=== PATIENT | male | born 1990 | race African-American/Black ===

== ENCOUNTER 2018-09-16 16:02 | Emergency (ER) | payer MEDICARE, OTHER ==
[~2018-09-16] VITALS: Ht 175.3 cm; Wt 102.1 kg
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
[2018-09-16 16:11] VITALS: BP 126/88
[2018-09-16 16:15] VITALS: BP 126/88
[2018-09-16] MEDS ORDERED: CLARITIN5 MG ORAL (16:15)
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
== END 2018-09-16 16:30 | disposition left against medical advice (07) ==
LOC: EMR 16:26
DX: M79.641 Pain in right hand (principal); I10 Essential (primary) hypertension
CPT/HCPCS: 99283

== ENCOUNTER 2018-11-28 23:15 | Emergency (ER) | payer MEDICARE, OTHER ==
[~2018-11-28] VITALS: Ht 175.3 cm; Wt 106.6 kg
[~2018-11-28 23:15] MED LIST: CLARITIN5 MG ORAL
[2018-11-28] MEDS ORDERED: FUROSEMIDE20 M1 ORAL (23:25)
[2018-11-28 23:32] VITALS: BP 196/119
--- NOTE | 2018-11-28 23:32 | NUR ---
ED Nurse Note: Patient walked into ED c/o lacerations on his right hand, patient states that he slipped and a forklift ran over his hand. BP of 196/119 however states that he did not take his meds today
[2018-11-29] MEDS ORDERED: Bacitracin Oint UD TOPIC ONE (00:15)
[2018-11-29 00:17] VITALS: BP 167/106
[2018-11-29] MEDS ORDERED: IBUPROFEN600 MG ORAL (00:20)
[2018-11-29] MEDS ORDERED: CEPHALEXIN500 MG ORAL (00:20)
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
[2018-11-29 00:25] VITALS: BP 167/106
--- NOTE | 2018-11-29 00:25 | NUR ---
ER DISCHARGE NOTE: Patient is cleared to be discharged per ERMD, pt is aox4, on room air, with stable vital signs. pt was given dc and prescription instructions, pt was able to verbalize understanding, pt id band removed pt is able to ambulate with steady gait. pt took all belongings.
== END 2018-11-29 00:24 | disposition home or self-care (01) ==
LOC: EMR 23:39
DX: S61.011A Laceration without foreign body of right thumb without damage to nail, initial encounter (principal); S61.212A Laceration without foreign body of right middle finger without damage to nail, initial encounter; I10 Essential (primary) hypertension; V09.9XXA Pedestrian injured in unspecified transport accident, initial encounter; Y92.9 Unspecified place or not applicable
CPT/HCPCS: 99283

== ENCOUNTER 2018-12-16 21:30 | Emergency (ER) | payer MEDICARE, OTHER ==
[~2018-12-16] VITALS: Ht 177.8 cm; Wt 106.6 kg
[~2018-12-16 21:30] MED LIST changes: +CEPHALEXIN500 MG ORAL; +FUROSEMIDE20 M1 ORAL; +IBUPROFEN600 MG ORAL
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
[2018-12-16 21:45] VITALS: BP 149/98
--- NOTE | 2018-12-16 22:10 | NUR ---
ED Nurse Note: pt cleared to be d/c per ERMD, pt left without discharge paperwork, pt was given instruction prior by ERMD. pt left w/ all belonging.
--- NOTE | 2018-12-16 22:10 | Emergency Room Report ---
History of Present Illness General Chief Complaint: Wound Recheck/Suture Removal Source: Patient Present Illness HPI Patient presents with reports of request for suture removal Patient had sutures placed in the middle of November here on the right hand on the thumb and the dorsal middle finger This was an injury that was occurred with a forklift he feels the area is healing well denies any discharge denies any fevers Allergies: Coded Allergies: No Known Allergies (Unverified , 09/16/18) Patient History Past Medical History: see triage record Pertinent Family History: none Reviewed Nursing Documentation: PMH: Agreed; PSxH: Agreed Nursing Documentation-PMH Past Medical History: No Stated History Hx Hypertension: Yes Review of Systems All Other Systems: negative except mentioned in HPI Physical Exam Vital Signs Date Time Temp Pulse Resp B/P (MAP) Pulse Ox O2 Delivery O2 Flow Rate FiO2 12/16/18 21:36 98.4 92 17 149/98 (115) 98 Room Air Sp02 EP Interpretation: reviewed, normal General Appearance: well appearing, no apparent distress Head: normocephalic, atraumatic Eyes: bilateral eye PERRL, bilateral eye EOMI ENT: hearing grossly normal, normal pharynx Neck: supple Musculoskeletal: normal inspection - Full flexion of all digits Neurologic: alert, oriented x3, responsive Skin: normal color, no rash Lymphatic: no adenopathy Medical Decision Making Diagnostic Impression: Primary Impression: suture removal ER Course Alcohol wipe was applied to the areas in question For sutures were removed from the thumb region without any dehiscence area looks well Also 5 sutures removed from the dorsal proximal middle finger Also area looks clean without any dehiscence no erythema or fluctuance And patient was stable for further close outpatient follow-up Last Vital Signs Date Time Temp Pulse Resp B/P (MAP) Pulse Ox O2 Delivery O2 Flow Rate FiO2 12/16/18 21:45 98.4 91 17 149/98 99 Room Air Status: improved Disposition: HOME, SELF-CARE Condition: Improved Patient Instructions: Suture Removal, Care After Additional Instructions: Patient is provided with the discharge instructions notified to follow up with primary doctor in the next 2-3 days otherwise return to the er with any worsening symptoms. Please note that this report is being documented using [employer]AG[employer] technology. This can lead to erroneous entry secondary to incorrect interpretation by the dictating instrument. Ricky Hernandez DO December 16, 2018 22:10
[2018-12-16 22:13] VITALS: BP 149/98
== END 2018-12-16 22:14 | disposition home or self-care (01) ==
LOC: EMR 21:48
DX: Z48.02 Encounter for removal of sutures (principal); I10 Essential (primary) hypertension
CPT/HCPCS: 99282